=== PATIENT | male | born 1960 | race American Indian/Alaskan Native ===

== ENCOUNTER 2022-08-30 03:46 | Emergency (ER) | payer MEDICAID ==
[2022-08-30] MEDS ORDERED: DUONEB 0.5-3 MG/3 ml Neb IH ONE ×2 (04:23→04:39)
--- NOTE | 2022-08-30 04:30 | ERPHSYRPT ---
- History of Present Illness Source: patient, family Exam Limitations: no limitations Patient Subjective Stated Complaint: PT STATES HE HAS BEEN SHORT OF BREATH FOR PPROX 4 DAYS. WORSE TONIGHT. Triage Nursing Assessment: pt alert and oriented, answers questions approp. pt ambulates into room with steady gait noted. pt short of breath, improves after sitting. exp wheezing noted bilat throughout. skin warm and dry. Timing/Duration: day(s) Severity of Dyspnea-Max: moderate Severity of Dyspnea-Current: moderate Possible Cause: frequent episodes Modifying Factors: Improves With: coughing Associated Symptoms: cough, wheezing, No chest pain/discomfort Hx Tetanus, Diphtheria Vaccination/Date Given: Yes Hx Influenza Vaccination/Date Given: Yes Hx Pneumococcal Vaccination/Date Given: No Immunizations Up to Date: No <KATIE HERNANDEZ - Last Filed: 08/30/22 06:23> - History of Present Illness Activities at Onset: none <IDALIA ANDERSON - Last Filed: 08/30/22 09:45> - History of Present Illness Time Seen by Provider: 08/30/22 04:15 Physician History: This is an overweight 62-year-old white male patient who presents with shortness of air and wheezing that began approximately midnight prior to arrival. Patient has been in the process of moving from [place] to [place]. Patient has been off his medications for 90 days. 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 He stated that on August 19 he had a phone conversation with the insurance loss control surveyor from [facility] and the insurance from [place] has not transferred over and kicked in yet. Patient denies chest pain. He has a history of coronary artery disease having had a CABG procedure in the past. He has a history of asthma CHF, peripheral neuropathy and hypertension as well. He continues to smoke cigarettes. Patient has not been in our emergency department in the past. Patient had a similar "asthma attack" 24 hours ago but he was able to get through it. (KATIE HERNANDEZ) Allergies/Adverse Reactions: No Known Drug Allergies Allergy (Unverified 08/30/22 04:18) Home Medications: Albuterol Sulfate [Albuterol Sulfate Hfa] 2 inh IH Q4-6HPRN PRN 08/30/22 [History] Amlodipine Besylate [Norvasc] 10 mg PO DAILY 08/30/22 [History] Aspirin EC 81 mg [Ecotrin 81 mg] 81 mg PO DAILY 08/30/22 [History] Atorvastatin Calcium [Lipitor] 80 mg PO DAILY 08/30/22 [History] Ezetimibe 10 mg [Zetia 10 MG] 10 mg PO DAILY 08/30/22 [History] Fluticasone/Umeclidin/Vilanter [Trelegy Ellipta 200-62.5-25] 1 each IH DAILY 08/30/22 [History] Isosorbide Mononitrate [Isosorbide Mononitrate ER] 60 mg PO DAILY 08/30/22 [History] Losartan Potassium [Cozaar] 50 mg PO DAILY 08/30/22 [History] Metformin HCl 500 mg [Glucophage 500 MG] 1,000 mg PO BIDWM 08/30/22 [History] Metoprolol Succinate 50 mg [Toprol Xl 50 MG] 50 mg PO DAILY 08/30/22 [History] Omeprazole 40 mg PO DAILY 08/30/22 [History] Trazodone HCl 100 mg PO HS 08/30/22 [History] Travel Risk - International Travel Have you traveled outside of the country in past 3 weeks: No - Coronavirus Screening Are you exhibiting any of the following symptoms?: No Close contact with a COVID-19 positive Pt in past 14-21 Days: No - Vaccine Status Have you recieved a Covid-19 vaccination: Yes Media Executive: [employer] - Vaccination Dates Date of 2cond Vaccination (if applicable): UNSURE <KATIE HERNANDEZ - Last Filed: 08/30/22 06:23> - Review of Systems Constitutional: No Symptoms Eyes: No Symptoms Ears, Nose, & Throat: No Symptoms Respiratory: Cough, Dyspnea, Wheezing Cardiac: No Symptoms Abdominal/Gastrointestinal: No Symptoms Genitourinary Symptoms: No Symptoms Musculoskeletal: No Symptoms Skin: No Symptoms Neurological: No Symptoms Psychological: No Symptoms Endocrine: No Symptoms Hematologic/Lymphatic: No Symptoms Immunological/Allergic: No Symptoms All Other Systems: Reviewed and Negative <KATIE HERNANDEZ - Last Filed: 08/30/22 06:23> - Past Medical History Pertinent Past Medical History: Yes Neurological History: Peripheral Neuropathy Cardiac History: Angina, Congestive Heart Failure, Coronary Artery Disease, Hypertension Respiratory History: Asthma, COPD Endocrine Medical History: Diabetes Type II Musculoskeletal History: Arthritis, Degenerative Disk Disease Other Medical History: NEUROPATHY - Past Surgical History Past Surgical History: Yes Cardiac: CABG Other Surgical History: 4 VESSEL CABG 2011 - Social History Smoking Status: Current every day smoker How long have you smoked: 50 Exposure to second hand smoke: No Drug Use: none Patient Lives Alone: No <KATIE HERNANDEZ - Last Filed: 08/30/22 06:23> - Physical Exam General Appearance: mild distress, alert, anxiety, obese Eye Exam: PERRL/EOMI, eyes nml inspection Ears, Nose, Throat Exam: hearing grossly normal, normal ENT inspection, normal pharynx Neck Exam: normal inspection, non-tender, supple, full range of motion Respiratory Exam: lungs clear, respiratory distress, airway intact (Mild), wheezing (Mild diffuse bilateral), No chest tenderness Cardiovascular/Chest Exam: normal heart sounds, regular rate/rhythm Abdominal/Gastrointestinal Exam: soft, normal bowel sounds, No tenderness Rectal Exam: not done Extremity Exam: non-tender, normal range of motion, normal inspection Neurologic Exam: alert, oriented x 3, cooperative, shoe lay out planner II-XII nml as tested, normal mood/affect, nml cerebellar function, nml station & gait, sensation nml Skin Exam: normal color, warm, dry Lymphatic Exam: No adenopathy SpO2 Interpretation: borderline oxygenation SpO2: 94 O2 Delivery: Room Air <KATIE HERNANDEZ - Last Filed: 08/30/22 06:23> - Nursing Vital Signs Nursing Vital Signs: Initial Vital Signs Temperature 98.7 F 08/30/22 03:55 Pulse Rate 94 H 08/30/22 03:55 Respiratory Rate 20 08/30/22 03:55 Blood Pressure 206/113 08/30/22 03:55 O2 Sat by Pulse Oximetry 94 L 08/30/22 03:55 Pain Scale Pain Intensity 0 - Course Nursing assessment & vital signs reviewed: Yes EKG Interpreted by Me: RATE (89), Sinus Rhythm, NORMAL AXIS, NORMAL INTERVALS, Right Bundle Branch Block <KATIE HERNANDEZ - Last Filed: 08/30/22 06:23> - Radiology Exams Chest X-ray Interpretation: Infiltrates, Other (atelectasis SP CABG with cardiomeg) <IDALIA ANDERSON MILDRED - Last Filed: 08/30/22 09:45> Ordered Tests: Active Orders 24 hr Category Date Time Status Dynamite Shooter STAT Care 08/30/22 04:49 Active EKG-ER Only STAT Care 08/30/22 04:48 Active IV Insertion STAT Care 08/30/22 04:48 Active Pulse Oximetry (ED) STAT Care 08/30/22 04:48 Active CHEST 1 VIEW (PORTABLE) Stat Exams 08/30/22 04:49 Taken CHEST WITH CONTRAST [CT] Stat Exams 08/30/22 06:09 Taken BLOOD CULTURE Stat Lab 08/30/22 05:27 Results CBC W DIFF Stat Lab 08/30/22 04:10 Completed CMP Stat Lab 08/30/22 04:10 Completed D-DIMER QUANTITATIVE Stat Lab 08/30/22 04:10 Completed Lactic Acid Stat Lab 08/30/22 04:55 Completed Lactic Acid Stat Lab 08/30/22 07:03 Completed NT PRO BNPII Stat Lab 08/30/22 04:10 Completed TROPONIN Q4H Lab 08/30/22 04:10 Completed TROPONIN Q4H Lab 08/30/22 07:55 Completed TROPONIN Q4H Lab 08/30/22 13:00 Ordered Respiratory Therapy Assessment DAILY RT 08/30/22 04:39 Active Medication Summary Discontinued Medications Generic Name Dose Route Start Last Admin Trade Name Freq PRN Reason Stop Dose Admin Albuterol/Ipratropium Confirm 08/30/22 04:23 Ipratropium/Albuterol Sulfate 3 Ml Ampul.Neb Administered 08/30/22 04:24 Dose 3 ml IH .STK-MED ONE Albuterol/Ipratropium 3 ml 08/30/22 04:39 08/30/22 04:25 Ipratropium/Albuterol Sulfate 3 Ml Ampul.Neb IH 08/30/22 04:40 3 ml STAT ONE Administration Amlodipine Besylate 10 mg 08/30/22 07:14 08/30/22 07:37 Amlodipine Besylate 5 Mg Tablet PO 08/30/22 07:15 10 mg STAT ONE Administration Amlodipine Besylate Confirm 08/30/22 07:31 Amlodipine Besylate 5 Mg Tablet Administered 08/30/22 07:32 Dose 10 mg .ROUTE .STK-MED ONE Aspirin Confirm 08/30/22 09:18 Aspirin 81 Mg Tab.Chew Administered 08/30/22 09:19 Dose 324 mg .ROUTE .STK-MED ONE Methylprednisolone Sodium 0 mg 08/30/22 04:48 08/30/22 05:13 Succinate 125 mg/ Sterile IV 08/30/22 04:49 125 mg Water 2 ml STAT ONE Administration Sodium Chloride 500 mls @ 500 mls/hr 08/30/22 06:10 08/30/22 07:34 Sodium Chloride 0.9% 500 Ml IV 08/30/22 07:09 Infused .Q1H ONE Infusion Sodium Chloride Confirm 08/30/22 06:28 Sodium Chloride 0.9% 500 Ml Administered 08/30/22 06:29 Dose 500 mls @ ud IV .STK-MED ONE Losartan Potassium 50 mg 08/30/22 07:29 08/30/22 07:36 Losartan Potassium 50 Mg Tablet PO 08/30/22 07:30 50 mg STAT ONE Administration Methylprednisolone Sodium Succinate Confirm 08/30/22 05:09 Methylprednis Sod Succ 125 Mg/2 Ml Vial Administered 08/30/22 05:10 Dose 125 mg .ROUTE .STK-MED ONE Metoprolol Succinate 50 mg 08/30/22 07:30 08/30/22 07:39 Metoprolol Succinate 50 Mg Tablet.Sa PO 08/30/22 07:31 50 mg STAT ONE Administration Metoprolol Succinate Confirm 08/30/22 07:38 Metoprolol Succinate 25 Mg Xl Tab Administered 08/30/22 07:39 Dose 50 mg .ROUTE .STK-MED ONE Sterile Water Confirm 08/30/22 05:09 Water For Injection,Sterile 10 Ml Vial Administered 08/30/22 05:10 Dose 10 ml IJ .STK-MED ONE Lab/Rad Data: Laboratory Result Diagrams 08/30/22 04:10 08/30/22 04:10 Laboratory Results 08/30/22 08/30/22 08/30/22 Range/Units 07:55 07:03 05:07 WBC (4.0-10.5) x10^3/uL RBC (4.1-5.6) x10^6/uL Hgb (12.5-18.0) g/dL Hct (42-50) % MCV (78-100) fL MCH (26-32) pg MCHC (32-36) g/dL RDW (11.5-14.0) % Plt Count (150-450) x10^3/uL MPV (7.5-11.0) fL Gran % (36.0-66.0) % Immature Gran % (Auto) (0.00-0.4) % Nucleat RBC Rel Count (0.00-0.1) % Eos # (Auto) (0-0.5) x10^3/uL Immature Gran # (Auto) (0.00-0.03) x10^3u/L Absolute Lymphs (auto) (1.0-4.6) x10^3/uL Absolute Monos (auto) (0.0-1.3) x10^3/uL Absolute Nucleated RBC (0.00-0.01) x10^3u/L Lymphocytes % (24.0-44.0) % Monocytes % (0.0-12.0) % Eosinophils % (0.00-5.0) % Basophils % (0.0-0.4) % Absolute Granulocytes (1.4-6.9) x10^3/uL Basophils # (0-0.4) x10^3/uL D-Dimer (0.0-0.50) mg/L Sodium (137-145) mmol/L Potassium (3.5-5.1) mmol/L Chloride (98-107) mmol/L Carbon Dioxide (22-30) mmol/L Anion Gap (5-15) MEQ/L BUN (9-20) mg/dL Creatinine (0.66-1.25) mg/dL Estimated GFR ML/MIN Glucose (74-106) mg/dL Lactic Acid 2.0 (0.4-2.0) Calcium (8.4-10.2) mg/dL Total Bilirubin (0.2-1.3) mg/dL AST (17-59) U/L ALT (0-50) U/L Alkaline Phosphatase (38-126) U/L Troponin I 0.083 H* (0.000-0.034) ng/mL NT-Pro-B Natriuret Pep (<300) pg/mL Serum Total Protein (6.3-8.2) g/dL Albumin (3.5-5.0) g/dL Influenza Type A Ag NEGATIVE (NEGATIVE) Influenza Type B Ag NEGATIVE (NEGATIVE) RSV (PCR) NEGATIVE (NEGATIVE) SARS-CoV-2 (PCR) NEGATIVE (NEGATIVE) 08/30/22 08/30/22 08/30/22 Range/Units 04:55 04:10 04:10 WBC (4.0-10.5) x10^3/uL RBC (4.1-5.6) x10^6/uL Hgb (12.5-18.0) g/dL Hct (42-50) % MCV (78-100) fL MCH (26-32) pg MCHC (32-36) g/dL RDW (11.5-14.0) % Plt Count (150-450) x10^3/uL MPV (7.5-11.0) fL Gran % (36.0-66.0) % Immature Gran % (Auto) (0.00-0.4) % Nucleat RBC Rel Count (0.00-0.1) % Eos # (Auto) (0-0.5) x10^3/uL Immature Gran # (Auto) (0.00-0.03) x10^3u/L Absolute Lymphs (auto) (1.0-4.6) x10^3/uL Absolute Monos (auto) (0.0-1.3) x10^3/uL Absolute Nucleated RBC (0.00-0.01) x10^3u/L Lymphocytes % (24.0-44.0) % Monocytes % (0.0-12.0) % Eosinophils % (0.00-5.0) % Basophils % (0.0-0.4) % Absolute Granulocytes (1.4-6.9) x10^3/uL Basophils # (0-0.4) x10^3/uL D-Dimer 0.98 H* (0.0-0.50) mg/L Sodium (137-145) mmol/L Potassium (3.5-5.1) mmol/L Chloride (98-107) mmol/L Carbon Dioxide (22-30) mmol/L Anion Gap (5-15) MEQ/L BUN (9-20) mg/dL Creatinine (0.66-1.25) mg/dL Estimated GFR ML/MIN Glucose (74-106) mg/dL Lactic Acid 2.1 H (0.4-2.0) Calcium (8.4-10.2) mg/dL Total Bilirubin (0.2-1.3) mg/dL AST (17-59) U/L ALT (0-50) U/L Alkaline Phosphatase (38-126) U/L Troponin I 0.046 H* (0.000-0.034) ng/mL NT-Pro-B Natriuret Pep (<300) pg/mL Serum Total Protein (6.3-8.2) g/dL Albumin (3.5-5.0) g/dL Influenza Type A Ag (NEGATIVE) Influenza Type B Ag (NEGATIVE) RSV (PCR) (NEGATIVE) SARS-CoV-2 (PCR) (NEGATIVE) 08/30/22 08/30/22 Range/Units 04:10 04:10 WBC 9.5 (4.0-10.5) x10^3/uL RBC 5.28 (4.1-5.6) x10^6/uL Hgb 15.8 (12.5-18.0) g/dL Hct 49.8 (42-50) % MCV 94.3 (78-100) fL MCH 29.9 (26-32) pg MCHC 31.7 L (32-36) g/dL RDW 14.2 H (11.5-14.0) % Plt Count 207 (150-450) x10^3/uL MPV 11.3 H (7.5-11.0) fL Gran % 69.9 H (36.0-66.0) % Immature Gran % (Auto) 0.3 (0.00-0.4) % Nucleat RBC Rel Count 0.0 (0.00-0.1) % Eos # (Auto) 0.19 (0-0.5) x10^3/uL Immature Gran # (Auto) 0.03 (0.00-0.03) x10^3u/L Absolute Lymphs (auto) 1.80 (1.0-4.6) x10^3/uL Absolute Monos (auto) 0.76 (0.0-1.3) x10^3/uL Absolute Nucleated RBC 0.00 (0.00-0.01) x10^3u/L Lymphocytes % 19.0 L (24.0-44.0) % Monocytes % 8.0 (0.0-12.0) % Eosinophils % 2.0 (0.00-5.0) % Basophils % 0.8 (0.0-0.4) % Absolute Granulocytes 6.62 (1.4-6.9) x10^3/uL Basophils # 0.08 (0-0.4) x10^3/uL D-Dimer (0.0-0.50) mg/L Sodium 139 (137-145) mmol/L Potassium 3.8 (3.5-5.1) mmol/L Chloride 104 (98-107) mmol/L Carbon Dioxide 26 (22-30) mmol/L Anion Gap 12.5 (5-15) MEQ/L BUN 18 (9-20) mg/dL Creatinine 0.83 (0.66-1.25) mg/dL Estimated GFR > 60.0 ML/MIN Glucose 129 H (74-106) mg/dL Lactic Acid (0.4-2.0) Calcium 8.3 L (8.4-10.2) mg/dL Total Bilirubin 0.50 (0.2-1.3) mg/dL AST 23 (17-59) U/L ALT 20 (0-50) U/L Alkaline Phosphatase 67 (38-126) U/L Troponin I (0.000-0.034) ng/mL NT-Pro-B Natriuret Pep 929 (<300) pg/mL Serum Total Protein 7.6 (6.3-8.2) g/dL Albumin 3.8 (3.5-5.0) g/dL Influenza Type A Ag (NEGATIVE) Influenza Type B Ag (NEGATIVE) RSV (PCR) (NEGATIVE) SARS-CoV-2 (PCR) (NEGATIVE) - Progress Progress: improved Air Movement: fair Blood Culture(s) Obtained: Yes Counseled pt/family regarding: lab results, diagnosis, need for follow-up, rad results <KATIE HERNANDEZ - Last Filed: 08/30/22 06:23> - Progress Progress: improved, re-examined Air Movement: good Antibiotics given: No Discussed with Dr.: Other (Dr. Grimes at [facility]) Will see patient in: ED Counseled pt/family regarding: lab results, diagnosis, need for follow-up, rad results, smoking cessation <IDALIA ANDERSON - Last Filed: 08/30/22 09:45> - Progress Progress Note: 08/30/22 06:18 Clinically, the patient states that he is breathing much better now. There is obvious less audible wheezing. This patient's medical issue is of at least moderate complexity. The level of complexity and the work-up performed is based on review of the patient's past medical history, review of the patient's medication list, review of the patient's drug allergy list, history of present illness and physical findings on examination. Work-up in this patient includes evaluation by respiratory therapy, placement of intravenous line with drawing a CBC, CMP, troponin, twelve-lead EKG and D-dimer level. We performed a chest x-ray. I reviewed the results of the work-up and I interpreted the chest x-ray. The patient has an elevated D-dimer and we will proceed with a CT of the chest with contrast to evaluate for pulmonary embolus. The patient has also been given temporary Medicaid. 08/30/22 06:23 Chest x-ray was interpreted by me. The patient appears to have bibasilar scarring versus atelectasis versus early infiltrate. The patient care is being transferred to Dr. Idalia Anderson at shift change. He will review the results of the work-up and make final disposition. (KATIE HERNANDEZ) 08/30/22 07:04 Pt taken over at change of shift from Dr. Hernandez after discussion of pending tests CT read to rule out PE, Discussed with and Pt the tests ordered , risks benefits and results current including elevated Troponin and that we recommend observation at some hospital, due to risks of cardiac event including - they have the capacity to make a choice - pt has normal mental status. collaborated Hx as an independent source with , 08/30/22 07:32 08/30/22 08:53 Second Trop came back critical at 0.08 almost double the previous one. This was discussed with pt and and I explained this is an indication for developing heart problems like ACS/AL and that he needs transfer to to be in facility with agricultural engineering technologist and research laboratory manager and they prefer [facility] rather than [facility] if available and understand [facility] is a heart hospital and again they have the capacity to make this choice. 08/30/22 09:12 No response from [facility] yet so [facility] also contacted. 08/30/22 09:28 Dr. Chandler accepted at [facility], pt is still wishing to decline but we made an additional effort to advise him that this very much looks like a cardiac event , even without CP and that he should go by ambulance to avoid risk of sudd en . He and his understand these risks and have the decisional capacity to make this choice and understand that he could enroute due to arrythmia or some other cardiac event. The pt has signed the declination of transport on the transfer form and wishes to proceed on his own to [facility] and he and are again aware of the risk including for . 08/30/22 09:[address] Grimes at [facility] and as above he accepted. (IDALIA ANDERSON) Medical Desision Making - Independent Historian Additional History obtained from: Spouse - Diagnostic Testing Diagnostic test were ordered, analyzed, and reviewed by me: Yes Radiological Interpretation: Interpreted by me - Risk of complications The pt has a mod risk of morbidity or mortality based on: Need for prescription drug management <KATIE HERNANDEZ - Last Filed: 08/30/22 06:23> - Independent Historian Additional History obtained from: Spouse - Discussion of managment Care discussed with:: specialist (Dr. Grimes in ER) Reviewed:: Test results, Need for additional workup Agreed on:: Treatment plan, need for follow-up Will see patient: in ED - Diagnostic Testing Diagnostic test were ordered, analyzed, and reviewed by me: Yes Radiological Interpretation: Interpreted by me, Reviewed by me, Teleradiologist Report - Risk of complications The pt has a mod risk of morbidity or mortality based on: Need for prescription drug management The pt has a high risk of morbidity or mortality based on: Decision regarding hospitilization or escalation of hosp level of care <IDALIA ANDERSON - Last Filed: 08/30/22 09:45> - Departure Departure Disposition: Home Critical Care Time: No <KATIE HERNANDEZ - Last Filed: 08/30/22 06:23> <IDALIA ANDERSON - Last Filed: 08/30/22 09:45> - Departure Clinical Impression: Shortness of breath, Wheezing, Elevated d-dimer, Elevated troponin Condition: Fair Referrals: DOCTOR,NO FAMILY [Primary Care Provider] - Follow up/PCP as directed
[2022-08-30] MEDS ORDERED: solu-MEDROL 125 MG, Sterile H2O 10 ml 2 ML IV ONE ×2 (04:48)
[2022-08-30] MEDS ORDERED: solu-MEDROL ONE (05:09)
[2022-08-30] MEDS ORDERED: Sterile H2O 10 ml IJ ONE (05:09)
[2022-08-30 05:12] LABS: Absolute Neutrophil Ct (ANC) 6.62 x10^3/uL (1.4-6.9); BASOPHIL % 0.8 % (0.0-0.4); Basophil (Absolute #) 0.08 x10^3/uL (0-0.4); Eosinophil (Absolute #) 0.19 x10^3/uL (0-0.5); Hematocrit 49.8 % (42-50); Hemoglobin 15.8 g/dL (12.5-18.0); IMMATURE GRAN # 0.03 x10^3u/L (0.00-0.03); IMMATURE GRAN % 0.3 % (0.00-0.4); Mean Cell Volume 94.3 fL (78-100); Mean Corpuscular Hemoglobin 29.9 pg (26-32); Mean Corpuscular Hgb Concent. 31.7 g/dL (32-36); Mean Platelet Volume 11.3 fL (7.5-11.0); Monocyte (Absolute #) 0.76 x10^3/uL (0.0-1.3); Neutrophil % 69.9 % (36.0-66.0); Platelet Count 207 x10^3/uL (150-450); Red Blood Count 5.28 x10^6/uL (4.1-5.6); Red Cell Distribution Width 14.2 % (11.5-14.0); White Blood Count 9.5 x10^3/uL (4.0-10.5)
[2022-08-30 05:52] LABS: INFLUENZA A NEGATIVE (NEGATIVE); INFLUENZA B NEGATIVE (NEGATIVE); RESPIRATORY SYNCTIAL VIRUS NEGATIVE (NEGATIVE); SARS-CoV-2 Xpert Express NEGATIVE (NEGATIVE)
[2022-08-30 05:54] LABS: ALBUMIN 3.8 g/dL (3.5-5.0); ALKALINE PHOSPHATASE 67 U/L (38-126); ANION GAP 12.5 MEQ/L (5-15); BLOOD UREA NITROGEN 18 mg/dL (9-20); CHLORIDE 104 mmol/L (98-107); Calcium 8.3 mg/dL (8.4-10.2); Carbon Dioxide 26 mmol/L (22-30); Creatinine 1 0.83 mg/dL (0.66-1.25); EST GLOMERULAR FILTRATION RATE > 60.0 ML/MIN; Glucose 129 mg/dL (74-106); NT PRO BNPII 929 pg/mL (<300); Potassium 3.8 mmol/L (3.5-5.1); SGOT/AST 23 U/L (17-59); SGPT/ALT 20 U/L (0-50); SODIUM 139 mmol/L (137-145); Total Protein 7.6 g/dL (6.3-8.2)
[2022-08-30] MEDS ORDERED: Sodium Chloride 0.9% 500 ML 500 ML IV ONE ×2 (06:10→06:28)
[2022-08-30] MEDS ORDERED: NORVASC 5 MG PO ONE (07:14)
[2022-08-30] MEDS ORDERED: Cozaar 50 MG PO ONE (07:29)
[2022-08-30] MEDS ORDERED: Toprol Xl 50 MG PO ONE (07:30)
[2022-08-30] MEDS ORDERED: NORVASC 5 MG ONE (07:31)
[2022-08-30] MEDS ORDERED: Toprol-Xl 25MG Tablets ONE (07:38)
[2022-08-30 08:34] VITALS: BP 196/70; PULSE 60; O2SAT 95
[2022-08-30] MEDS ORDERED: BABY ASPIRIN 81 MG CHEW ONE (09:18)
[2022-08-30] MEDS ORDERED: BABY ASPIRIN 81 MG CHEW PO ONE (09:36)
--- NOTE | 2022-08-30 12:03 | XRAY ---
CLINICAL HISTORY:Shortness of breath; cough; D-dimer COMPARISON:None. TECHNIQUE:Axial sections of CT chest pulmonary angiogram were obtained after administration of intravenous contrast. ;80 cc of Isovue 370 was administered to obtain postcontrast images. Reformatted coronal and sagittal images were acquired. FINDINGS: Artifacts are obscuring details resulting in limited evaluation.The pulmonary trunk, main right, and left pulmonary arteries are normally opacified. No definite evidence of pulmonary embolism.No definite evidence of aneurysmal dilatation of the thoracic aorta. Atherosclerotic changes in the thoracic aorta.A nodule measuring approximately 1.2 x 1.1 cm in the right lung apex, PET/CT is advised for further evaluation.Emphysematous changes in bilateral lungs, most pronounced in the bilateral lung apices.Atelectatic changes in the lung bases.No consolidation, pleural effusion or pneumothorax.No significant abdominal or pelvic lymphadenopathy. Subcentimeter calcified subcarinal and right hilar lymph nodes are seen.Mild cardiomegaly. No pericardial effusion. Coronary artery calcifications.Apparent thickening of the distal esophagus however, this is likely secondary to under distention.The thyroid gland appears unremarkable.No discrete chest wall mass.Few small splenic granulomas. The rest of the visualized upper abdominal viscera appear grossly unremarkable.Sternotomy sutures in place. Degenerative changes in the visualized spine. IMPRESSION: No definite evidence of acute pulmonary embolism. Nodule measuring approximately 1.2 x 1.1 cm in the right lung apex, follow-up CT after 3 months or PET/CT are advised for further evaluation. Emphysematous changes in bilateral lungs, most pronounced in the bilateral lung apices. Electronically Signed by: Dejah Harding MD. (08/30/2022 06:59:45 CORPORATE PLANNING MANAGER)
--- NOTE | 2022-08-30 21:09 | XRAY ---
Indication: Cough and short of breath. Comparison: None Lungs are inflated and clear. Heart enlarged with CABG surgery and a few small mediastinal calcified nodes. Bony thorax intact with mild degenerative changes. Impression: Cardiomegaly. Negative for acute pneumonic process or CHF.
== END 2022-08-30 09:38 | disposition short-term general hospital (02) ==
LOC: ED 03:46
DX: R06.02 Shortness of breath (principal); R06.2 Wheezing; R79.1 Abnormal coagulation profile; R77.8 Other specified abnormalities of plasma proteins; I21.4 Non-ST elevation (NSTEMI) myocardial infarction; I11.0 Hypertensive heart disease with heart failure; E11.42 Type 2 diabetes mellitus with diabetic polyneuropathy; Z79.84 Long term (current) use of oral hypoglycemic drugs; Z79.899 Other long term (current) drug therapy; Z72.0 Tobacco use; Z75.8 Other problems related to medical facilities and other health care; Z20.828 Contact with and (suspected) exposure to other viral communicable diseases
CPT/HCPCS: 0241U; 36000; 36415; 71045; 71260; 80053; 83605; 83880; 84484; 85025; 85379; 87040; 93005; 93041; 94640; 94760; 96374; 99285; J2930; A9270-GY

== ENCOUNTER 2022-09-08 02:11 | Emergency (ER) | payer MEDICAID ==
[2022-09-08] MEDS ORDERED: DUONEB 0.5-3 MG/3 ml Neb IH ONE ×2 (02:18→02:24)
[2022-09-08] MEDS ORDERED: solu-MEDROL 125 MG, Sterile H2O 10 ml 2 ML IV ONE ×2 (02:24)
[2022-09-08] MEDS ORDERED: Sterile H2O 10 ml IJ ONE (02:26)
[2022-09-08] MEDS ORDERED: solu-MEDROL ONE (02:26)
[2022-09-08 02:38] LABS: Absolute Neutrophil Ct (ANC) 9.94 x10^3/uL (1.4-6.9); BASOPHIL % 0.6 % (0.0-0.4); Basophil (Absolute #) 0.08 x10^3/uL (0-0.4); Eosinophil % 1.1 % (0.00-5.0); Eosinophil (Absolute #) 0.14 x10^3/uL (0-0.5); Hematocrit 49.8 % (42-50); Hemoglobin 15.6 g/dL (12.5-18.0); IMMATURE GRAN # 0.11 x10^3u/L (0.00-0.03); IMMATURE GRAN % 0.8 % (0.00-0.4); Lymphocyte (Absolute #) 1.68 x10^3/uL (1.0-4.6); Lymphocytes % 12.8 % (24.0-44.0); Mean Cell Volume 93.6 fL (78-100); Mean Corpuscular Hemoglobin 29.3 pg (26-32); Mean Corpuscular Hgb Concent. 31.3 g/dL (32-36); Mean Platelet Volume 10.9 fL (7.5-11.0); Monocyte (Absolute #) 1.16 x10^3/uL (0.0-1.3); Monocytes % 8.8 % (0.0-12.0); Neutrophil % 75.9 % (36.0-66.0); Platelet Count 206 x10^3/uL (150-450); Red Blood Count 5.32 x10^6/uL (4.1-5.6); Red Cell Distribution Width 14.2 % (11.5-14.0); White Blood Count 13.1 x10^3/uL (4.0-10.5)
[2022-09-08 02:47] LABS: ALBUMIN 3.6 g/dL (3.5-5.0); ALKALINE PHOSPHATASE 81 U/L (38-126); ANION GAP 10.5 MEQ/L (5-15); BLOOD UREA NITROGEN 21 mg/dL (9-20); CHLORIDE 103 mmol/L (98-107); Calcium 8.5 mg/dL (8.4-10.2); Carbon Dioxide 29 mmol/L (22-30); Creatinine 1 0.93 mg/dL (0.66-1.25); EST GLOMERULAR FILTRATION RATE > 60.0 ML/MIN; Glucose 137 mg/dL (74-106); MAGNESIUM 2.1 mg/dL (1.6-2.3); Potassium 4.3 mmol/L (3.5-5.1); SGOT/AST 22 U/L (17-59); SGPT/ALT 25 U/L (0-50); SODIUM 138 mmol/L (137-145); Total Protein 7.3 g/dL (6.3-8.2)
[2022-09-08] MEDS ORDERED: ROCEPHIN 2 Gm-D5w 50ML BAG** 2 G/50 ML IVPB IV STA (02:50)
[2022-09-08] MEDS ORDERED: Zithromax 500 MG/ 250 ML NaCl Premix 500 MG/250 ML IVPB IV STA (02:50)
[2022-09-08] MEDS ORDERED: ROCEPHIN 2 Gm-D5w 50ML BAG** 2 G/50 ML IVPB IV ONE (02:53)
[2022-09-08] MEDS ORDERED: Zithromax 500 MG/ 250 ML NaCl Premix 500 MG/250 ML IVPB IV ONE (02:53)
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
[2022-09-08 03:18] LABS: TROPONIN 0.05 ng/mL (0.000-0.034)
[2022-09-08] MEDS ORDERED: BABY ASPIRIN 81 MG CHEW PO ONE (03:27)
[2022-09-08] MEDS ORDERED: BABY ASPIRIN 81 MG CHEW ONE (03:30)
--- NOTE | 2022-09-08 06:16 | XRAY ---
CLINICAL HISTORY:Shortness of breath elevated D dimer; COMPARISON:08/30/2022; TECHNIQUES:Axial sections of CT chest pulmonary angiogram were obtained after administration of intravenous contrast. Reformatted coronal and sagittal images were acquired; FINDINGS: Artifacts are obscuring details on current CT resulting in limited evaluation. The pulmonary trunk, main right, and left pulmonary arteries are normally opacified. No definite evidence of pulmonary embolism. No definite evidence of aneurysmal dilatation of the thoracic aorta. Atherosclerotic changes in the thoracic aorta. A nodule measuring approximately 1.2 x 1.1 cm is redemonstrated in the right lung apex, PET/CT is advised for further evaluation. Emphysematous changes in bilateral lungs, most pronounced in the bilateral lung apices. Atelectatic changes in the lung bases. No consolidation, pleural effusion or pneumothorax. No significant lymphadenopathy. Subcentimeter calcified subcarinal and right hilar lymph nodes are seen. Mild cardiomegaly. No pericardial effusion. Coronary artery calcifications. Apparent thickening of the distal esophagus however, this is likely secondary to under distention. The thyroid gland appears unremarkable. No discrete chest wall mass. Few small splenic granulomas. Bulky right adrenal gland with a possible nodule. The rest of the visualized upper abdominal viscera appear grossly unremarkable. Sternotomy sutures in place. Degenerative changes in the visualized spine. IMPRESSION: No definite evidence of acute pulmonary embolism. Redemonstration of a nodule measuring approximately 1.2 x 1.1 cm in the right lung apex. Emphysematous changes in bilateral lungs, most pronounced in the bilateral lung apices. No significant interval change from prior CT. Electronically Signed by: Dejah Harding MD. (09/08/2022 05:03:58 STUDENT ASSISTANCE COUNSELOR;)
[2022-09-08 07:01] VITALS: O2SAT 94
[2022-09-08 07:04] VITALS: BP 138/54; PULSE 54
[2022-09-08] MEDS ORDERED: PHENERGAN 25 MG PO PRN (07:16)
[2022-09-08] MEDS ORDERED: TYLENOL 325 MG PO PRN (07:16)
--- NOTE | 2022-09-08 07:52 | XRAY ---
Indication: Short of breath and wheezing. Comparison: August 30, 2022 Portable chest remains inflated and clear. Heart not enlarged again with CABG surgery and incidental mediastinal calcified nodes. No new/acute findings.
[2022-09-08] MEDS ORDERED: ENOXAPARIN SODIUM SQ SCH (10:00)
== END 2022-09-08 09:03 | disposition left against medical advice (07) ==
LOC: ED 02:11
DX: I21.4 Non-ST elevation (NSTEMI) myocardial infarction (principal); J44.1 Chronic obstructive pulmonary disease with (acute) exacerbation; R06.02 Shortness of breath; R05.9 Cough, unspecified; I11.0 Hypertensive heart disease with heart failure; I50.9 Heart failure, unspecified; E11.42 Type 2 diabetes mellitus with diabetic polyneuropathy; E78.5 Hyperlipidemia, unspecified; Z79.84 Long term (current) use of oral hypoglycemic drugs; Z79.899 Other long term (current) drug therapy; Z72.0 Tobacco use
CPT/HCPCS: 36000; 36415; 71045; 71260; 80053; 83605; 83735; 83880; 84145; 84484; 85025; 85379; 87040; 93005; 93041; 94640; 96365; 96367; 96374; 99284; J0456; J0696; J2930; A9270-GY